=== PATIENT | female | born 2000 | race Caucasian/White ===

== ENCOUNTER 2022-06-19 22:38 | Emergency (ER) | payer OTHER ==
[2022-06-19 22:54] VITALS: BP 134/88; PULSE 100; RESP 16; TEMP 98; BMI 18.9
[2022-06-19 23:07] LABS: HCG,QUALITATIVE URINE Negative
[2022-06-19 23:29] LABS: EPITHELIAL CELLS FEW /hpf
== END 2022-06-19 23:39 | disposition home or self-care (01) ==
LOC: FER 22:38
DX: B00.9 Herpesviral infection, unspecified (principal)
CPT/HCPCS: 36415; 81003; 81015; 84703; 87086; 87252; 87491; 87591; 99283-25

== ENCOUNTER 2023-08-28 00:42 | Emergency (ER) | payer OTHER ==
[2023-08-28 01:01] VITALS: BP 128/88; PULSE 104; RESP 16; TEMP 98; BMI 20.3
[2023-08-28] MEDS: SODIUM CHLORIDE 1,000 ML IV ONE (01:02)
[2023-08-28] MEDS ORDERED: ONDANSETRON 4 MG/2 ML VIAL ONE (01:03)
[2023-08-28] MEDS: ONDANSETRON 4 MG/2 ML VIAL IVPUSH ONE (01:10)
== END 2023-08-28 01:46 | disposition home or self-care (01) ==
LOC: FER 00:42
PROC: 3E030GC Introduction of Other Therapeutic Substance into Peripheral Vein, Open Approach (ICD-10-PCS; principal; 2023-08-28)
PROC: 3E0337Z Introduction of Electrolytic and Water Balance Substance into Peripheral Vein, Percutaneous Approach (ICD-10-PCS; 2023-08-28)
DX: R11.2 Nausea with vomiting, unspecified (principal); R53.1 Weakness; R42 Dizziness and giddiness
CPT/HCPCS: 81025; 99284-25